=== PATIENT | female | born 1935 | race Hispanic/Latino ===

== ENCOUNTER 2018-04-08 18:13 | Emergency (ER) | payer OTHER ==
[~2018-04-08 18:13] MED LIST: AMLODIPINE BESY1 CA2 PO; ASPIRIN EC81 M1 PO; ATORVASTATIN CA80 M1 PO; CYCLOBENZAPRINE5 M2 PO; HYDRALAZINE HYD10 MG PO; METOPROLOL TART50 MG PO; VICODIN 300 MG-1 TAB PO
[2018-04-08 18:52] LABS: ABSOLUTE BASOPHIL COUNT 0 /CUMM (0.0-0.2); ABSOLUTE EOSINOPHIL COUNT 0.2 /CUMM (0.0-0.7); ABSOLUTE GRANULOCYTE CT 4.8 /CUMM (1.4-6.5); ABSOLUTE LYMPH COUNT 2.6 /CUMM (1.2-3.4); ABSOLUTE MONOCYTE COUNT 0.5 /CUMM (0.10-0.60); BASOPHIL % 0.5 % (0.0-2.0); GRANULOCYTE % 58.5 % (42.2-75.2); HEMATOCRIT 42.4 % (37-47); MEAN CORPUSCULAR HGB 30.6 PG (27.0-31.0); MEAN CORPUSCULAR HGB CONC 33.9 G/DL (33.0-37.0); MEAN CORPUSCULAR VOLUME 90.3 FL (81.0-99.0); MEAN PLATELET VOLUME 10.4 FL (7.4-10.4); PLATELET COUNT 183 /CUMM (130-400); RBC DISTRIBUTION WIDTH 15.2 % (11.5-14.5); RED BLOOD CELL CT 4.69 /CUMM (4.20-5.40); WHITE BLOOD CELL COUNT 8.3 /CUMM (4.8-10.8)
--- NOTE | 2018-04-08 19:17 | ED NECK/BACK PAIN COMPLAINT ---
History of Present Illness General Chief Complaint: Low Back Pain/Injury Stated Complaint: LOWER BACK/LEG PAIN Source: patient, family Exam Limitations: language barrier Vital Signs & Intake/Output Vital Signs & Intake/Output Vital Signs Date Time Temp Pulse Resp B/P B/P Pulse O2 O2 Flow FiO2 Mean Ox Delivery Rate 04/08 2016 98.2 72 18 186/84 97 Room Air 04/08 2012 Room Air 04/08 1823 97.4 64 17 180/91 97 Room Air Allergies Coded Allergies: aspirin (Mild, GI SX 02/18/18) Reconcile Medications Amlodipine Besylate/Benazepr (Amlodipine Besylate and Benazepril Hydrochlor) 1 CAP CAP 1 TAB PO DAILY BLOOD PRESSURE (Reported) Aspirin (Ecotrin*) 81 MG TABLET.DR 1 TAB PO DAILY HEART HEALTH (Reported) Atorvastatin Calcium 80 MG TABLET 1 TAB PO DAILY HTN (Reported) Cyclobenzaprine HCl 5 MG TABLET 1 TAB PO Q8P PRN PAIN HYDRALAZINE HCL (Hydralazine Hydrochloride) 10 MG TABLET 1 TAB PO DAILY HIGH BP (Reported) Metoprolol Tartrate 50 MG TABLET 1 TAB PO BID HIGH BLOOD PRESSURE (Reported) Oxycodone HCl/Acetaminophen (Percocet 5-325 MG Tablet) 5 MG-325 MG TABLET 1 TAB PO BID PRN PAIN Triage Note: PT REFERRED TO ED FROM PCP OFFICE FOR WORSENING LOWER BACK PAIN RADIATING DOWN RIGHT LEG. PAIN BEGAN 3 DAYS AGO. DENIES CHANGES IN BOWEL OR BLADDER. REPORTS PAIN MAKING IT DIFFICULT TO AMBULATE. Triage Nurses Notes Reviewed? yes Onset: Gradual Duration: constant Timing: recent history Quality/Severity: severe Location: lumbar spine, paraspinous muscles Radiation: buttocks, upper legs, lower legs HPI: Patient is a 83-year-old female who presents emergency room with concerns of a gradual onset of 3-4 DAY history of right-sided back pain with radiation of pain down her right leg. It is noted the patient was evaluated here 7 weeks ago for similar complaints however she states that symptoms are worse since now. Patient denies any fall or trauma denies any fever chills abdominal pain dysuria hematuria Patient states that she requires significant ambulatory assistance by her family members due to the pain (Edi Allison) Past History Travel History Traveled to [place] past 21 day No Medical History Any Pertinent Medical History? see below for history Neurological: NONE EENT: NONE Cardiovascular: hypertension, hyperlipidemia Respiratory: NONE Gastrointestinal: NONE Hepatic: NONE Renal: NONE Musculoskeletal: NONE Psychiatric: NONE Endocrine: NONE Blood Disorders: NONE Cancer(s): NONE INFORMATICS SCIENTIST/Reproductive: NONE Surgical History Surgical History: non-contributory Psychosocial History What is your primary language Faroese Tobacco Use: Never used Family History Hx Contributory? No (Edi Allison) Review of Systems Review of Systems Constitutional: Reports: no symptoms. Eyes: Reports: no symptoms. Ears, Nose, Throat, Mouth: Reports: no symptoms. Respiratory: Reports: no symptoms. Cardiovascular: Reports: no symptoms. Gastrointestinal/Abdominal: Reports: no symptoms. Musculoskeletal: Reports: see HPI, back pain. Skin: Reports: no symptoms. Neurological/Psychological: Reports: no symptoms. All Other Systems: Reviewed and Negative (Edi Allison) Physical Exam Physical Exam General Appearance: no apparent distress, alert, comfortable Head: atraumatic Eyes: Bilateral: normal appearance. Ears, Nose, Throat, Mouth: hearing grossly normal Neck: normal inspection Respiratory: no respiratory distress Cardiovascular: regular rate/rhythm Gastrointestinal: normal bowel sounds, soft, non-tender Back: GENERALIZED BACK PAIN NORMAL INSPECTION Neurologic/Psych: no motor/sensory deficits, awake, alert Skin: intact, normal color, warm/dry Comments: BILATERAL LOWER EXTREMITY MYOTOMES DERMATOMES intact Core Measures CVA/TIA Diagnosis: No (Edi Allison) Progress Differential Diagnosis: AAA, aortic dissection, C spine injury, carotid dissection, cauda equina syn, herniated disc, myofascial strain, pyelo/UTI, sciatica, spinal cord inj, thoracic outlet syn, T/L spine injury, ureterolithiasis Plan of Care: Orders Procedure Date/time Status URINALYSIS 04/08 1828 Active LIPASE 04/08 1828 Complete COMPREHENSIVE METABOLIC PANEL 04/08 1828 Complete CBC WITHOUT DIFFERENTIAL 04/08 1828 Complete Laboratory Tests 04/08/181836: Anion Gap 11, Estimated GFR > 60, BUN/Creatinine Ratio 21.4, Glucose 117 H, Calcium 9.6, Total Bilirubin 0.6, AST 22, ALT 28, Alkaline Phosphatase 109, Total Protein 6.9, Albumin 4.0, Globulin 2.9, Albumin/Globulin Ratio 1.4, Lipase 60, CBC w Diff NO MAN DIFF REQ, RBC 4.69, MCV 90.3, MCH 30.6, MCHC 33.9, RDW 15.2 H, MPV 10.4, Gran % 58.5, Lymphocytes % 31.9, Monocytes % 6.1, Eosinophils % 3.0, Basophils % 0.5, Absolute Granulocytes 4.8, Absolute Lymphocytes 2.6, Absolute Monocytes 0.5, Absolute Eosinophils 0.2, Absolute Basophils 0 Patient was neurovascular intact to bilateral lower extremities, no concerns of cauda equina syndrome there is indication that patient has acute to subacute L2- L3 compression fractures discussed results with daughter prior to being evaluated with subcutaneous morphine patient's pain symptoms have improved Patient was noted to be ambulatory with assistance of only a cane in which patient will be given a walker prescription and pain medications and to follow- up with orthopedic Ortiz Mcdermott MD. Family felt comfortable with disposition and plan. Discussed disposition plan with Dr. Antony who is aware and agrees Diagnostic Imaging: Viewed by Me: CT Scan. Radiology Impression: acute abnormality Comments: PATIENT: JESSICA DIXON PRESENT AGE: 83 PATIENT ACCOUNT NO: [id number] : 37 LOCATION: [facility] ORDERING PHYSICIAN: Chris QUESADA SERVICE DATE: 04/08/18 EXAM TYPE: CAT - CT ABD & PELVIS W/O IV CONTRAS EXAMINATION: CT ABDOMEN AND PELVIS WITHOUT CONTRAST CLINICAL INFORMATION: Right lower back pain COMPARISON: 02/18/2018 TECHNIQUE: Multidetector volumetric imaging was performed from the superior aspect of the liver through the pubic symphysis. Sagittal and coronal reformatted images were obtained on the technologist's workstation. DLP: 236 mGy-cm FINDINGS: LUNG BASES: Atherosclerotic calcification of coronary arteries and thoracic aorta. No acute findings within the visualized lung bases. No pericardial or pleural effusion. LIVER, GALLBLADDER, AND BILIARY TREE: Liver is unremarkable. Gallbladder is surgically absent. No intrahepatic or extra hepatic bile duct dilatation. PANCREAS: Unremarkable. SPLEEN: Unremarkable. ADRENAL GLANDS: Small hypodense nodule at the apex of the left adrenal gland measuring 0.9 cm wide has low attenuation of approximately - 10 HU, consistent with a lipid rich adrenal adenoma. KIDNEYS AND URETERS: No nephrolithiasis or hydronephrosis. There are cortical cysts at the lower pole of each kidney. The ureters are unremarkable. No evidence of ureterolithiasis or hydroureter. BLADDER: Unremarkable. GASTROINTESTINAL TRACT: Loops of bowel are normal in caliber. There is no evidence of acute inflammation or obstruction along the gastrointestinal tract. No ascites or pneumoperitoneum. ABDOMINAL WALL: No acute findings. A small right femoral hernia contains fat and fluid, unchanged compared to 02/18/2018. LYMPH NODES: No pathologic sized lymph nodes in the abdomen or pelvis. VASCULAR: Atherosclerotic calcification of the aorta and iliac arteries. The ectatic infrarenal abdominal aorta measures up to 2.6 cm transverse, 2.5 cm AP. No retroperitoneal hematoma. PELVIC VISCERA: A partially calcified uterine leiomyoma measures up to 2.1 cm. No adnexal mass or pelvic free fluid. OSSEOUS STRUCTURES: Bones are diffusely osteoporotic. There is an old L1 compression fracture with mild depression of the superior endplate. The mild concave depression of the L2 superior endplate is new compared to 02/18/2018. Also, there is a new, mild compression fracture of the L3 vertebral body which has become more sclerotic and exhibits central height loss of approximately 20%. 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 No acute pelvic or proximal femoral fracture. IMPRESSION: 1. Diffuse osteoporosis with old, mild compression fracture of the L1 vertebral body. Compared to 02/18/2018, there are new, mild compression deformities of the L2 and L3 vertebra. 2. No evidence of nephrolithiasis or hydroureteronephrosis. 3. No acute findings along the gastrointestinal tract. 4. Small lipid rich adenoma at the apex of the left adrenal gland. 5. Atherosclerotic disease of the abdominal aorta; the ectatic infrarenal aorta measures up to 2.6 cm transverse diameter. 6. A right femoral hernia contains fat and fluid, unchanged. DICTATED BY: Kuldip Dickens MD DATE/TIME DICTATED:04/08/181852 GENERATION MECHANIC HELPER:MAN DATE/TIME TRANSCRIBED:04/08/181852 (Edi Allison) Departure Departure Disposition: HOME OR SELF CARE Condition: Stable Clinical Impression Primary Impression: Compression fx, lumbar spine Referrals: Sharron MARIN,Ortiz Juares MD,Juan Carlos (PCP/Family) Additional Instructions: As discussed tomorrow please follow-up and call orthopedic Ortiz Mcdermott MD for further evaluation treatment. Begin the prescription of using the walker at all times for fall prevention until you're symptom-free, this needs to be picked up at a administrative medical director store. If symptoms worsen or if you develop new concerning symptom return to emergency room. Begin the prescription of Percocet for pain, prescription is waiting at [facility] Departure Forms: Customer Survey General Discharge Information Prescriptions: Current Visit Scripts Oxycodone HCl/Acetaminophen (Percocet 5-325 MG Tablet) 1 TAB PO BID PRN PAIN #10 TAB Rolling Walker UNIT SEE ADMIN CRITERIA #1 Use as instructed. diagnosis - L2, L3 Compression fractures (Carlene QUESADA,Edi) PA/MATERIAL CHASER Co-Sign Statement Statement: ED Attending supervision documentation- [X] I saw and evaluated the patient. I have also reviewed all the pertinent lab results and diagnostic results. I agree with the findings and the plan of care as documented in the PA's/MATERIAL CHASER's documentation. Patient presents for evaluation of worsening low back pain. Patient has a history of a prior L1 compression fracture. Patient denies history of urinary or fecal incontinence or urinary retention Physical examination reveals a comfortable appearing woman (just prior to discharge) with normal sensation to the lower extremities. [] I have reviewed the ED Record and agree with the PA's/MATERIAL CHASER's documentation. [] Additions or exceptions (if any) to the PAs/MATERIAL CHASER's note and plan are summarized below: [] (Cassia MARIN,Jeremiah Plascencia)
[2018-04-08] MEDS ORDERED: PERCOCET 5-3251 EACH PO (19:57)
[2018-04-08] MEDS ORDERED: RW (19:58)
[2018-04-08 20:16] VITALS: BP 186/84
== END 2018-04-08 20:50 ==
LOC: ERH 18:13
PROVIDERS: Physician Assistant Medical
DX: M48.56XA Collapsed vertebra, not elsewhere classified, lumbar region, initial encounter for fracture (principal); M79.604 Pain in right leg
CPT/HCPCS: 74176; 96372